=== PATIENT | male | born 1985 | race Hispanic/Latino ===

== ENCOUNTER 2024-05-05 18:33 | Emergency (ER) | payer OTHER ==
[~2024-05-05] VITALS: Ht 157.5 cm; Wt 72.6 kg
[2024-05-05 20:44] VITALS: BP 139/104
== END 2024-05-05 20:45 | disposition home or self-care (01) | DRG 156 ==
LOC: ED 18:33
DX: S02.2XXA Fracture of nasal bones, initial encounter for closed fracture (principal); S01.21XA Laceration without foreign body of nose, initial encounter; V86.55XA Driver of 3- or 4- wheeled all-terrain vehicle (ATV) injured in nontraffic accident, initial encounter; Y99.0 Civilian activity done for income or pay